=== PATIENT | male | born 1995 | race Caucasian/White ===

== ENCOUNTER 2019-03-02 20:06 | Emergency (ER) | payer BC ==
[~2019-03-02] VITALS: Ht 177.8 cm; Wt 125.0 kg
[2019-03-02 20:29] VITALS: BP 139/66; TEMP 98.3
[2019-03-02 22:38] VITALS: PULSE 92
== END 2019-03-02 22:37 | disposition home or self-care (01) ==
LOC: COL.ER 20:06
DX: S63.602A Unspecified sprain of left thumb, initial encounter (principal); W18.39XA Other fall on same level, initial encounter; Y92.331 Roller skating rink as the place of occurrence of the external cause; Y93.51 Activity, roller skating (inline) and skateboarding